=== PATIENT | female | born 1955 | race Caucasian/White ===

== ENCOUNTER 2022-08-01 13:00 | Outpatient (RCR) | payer MEDICARE, SELFPAY ==
[2022-06-24 11:01] VITALS: BP 128/82; PULSE 73; O2SAT 97
== END 2022-09-12 12:35 | disposition home or self-care (01) ==
LOC: HO.PTWFD 13:00
PROVIDERS: Visit Provider Pediatrics
DX: H81.10 Benign paroxysmal vertigo, unspecified ear (principal)
CPT/HCPCS: 95992; 97110; 97162; 97535